=== PATIENT | male | born 1990 ===

== ENCOUNTER 2021-11-09 06:33 | Emergency (ER) | payer SELFPAY ==
[2021-11-09 06:55] VITALS: BP 131/86
[2021-11-09] MEDS ORDERED: LIDOCAINE VISCOUS 2% 15 ML ORAL LIQD PO ONE (06:55)
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
== END 2021-11-09 09:22 | disposition home or self-care (01) ==
LOC: ED 06:33
DX: T18.9XXA Foreign body of alimentary tract, part unspecified, initial encounter (principal); J02.9 Acute pharyngitis, unspecified; X58.XXXA Exposure to other specified factors, initial encounter; Y93.89 Activity, other specified; Y92.89 Other specified places as the place of occurrence of the external cause; Y99.8 Other external cause status
CPT/HCPCS: 70360; 74022; 99283